=== PATIENT | male | born 1975 ===

== ENCOUNTER 2016-12-28 16:02 | Inpatient (IN) | payer OTHER ==
[2016-12-28 16:13] VITALS: O2SAT 99
--- NOTE | 2016-12-28 16:54 | ED PDOC ---
Psych Transfer Clearance - Clearance Statement Clearance Statement: Reviewed vital signs, lab results and transfer papers. Patient clinically stable for psychiatric admission.
[2016-12-28] MEDS ORDERED: Alum-Mag Hydrox-Simethicone Susp (30 mL) PO PRN (17:29)
[2016-12-28] MEDS ORDERED: Magnesium Hydroxide Susp 30 ml UD PO PRN (17:29)
[2016-12-28] MEDS ORDERED: DiphenhydrAMINE 50 mg/ml Inj IM PRN (17:29)
--- NOTE | 2016-12-28 18:50 | PCM.BM ---
<Gregory Hernandez - Last Filed: 12/28/16 18:48> Treatment Plan Problems - Problems identified on initial assessmt Problem 1 Date Initiated: 12/28/16 Time Initiated: 18:30 Assessment reference: NA Status: Active Hopelessness/Helplessness Date Initiated: 12/28/16 Time Initiated: 18:30 Assessment reference: NA Status: Active Treatment assets and liabiliti Patient Assests: cooperative, self-reliant, ADL independent, physically healthy , good interpersonal skills Patient Liabilities: relationship conflicts, substance abuse - Milieu Protocol Maintain good personal hygiene: daily Encourage regular showers, every shift Remind patient to perform daily oral care, every shift Assist patient to perform ADL's Conduct patient checks and document Observation sheet: Q15 minutes Maintain personal safety: daily Educate patient to report safety concerns to staff, every shift Monitor environment for contraband/sharps Medication safety: Monitor for expected outcome, potential side effects: every shift, Assess barriers to learning: every shift, Assess readiness for medication education: every shift Family Contact Family involvement: No known Family/SO - Goals for Treatment Patient goals for treatment: to feel better mentally <Stephan Sosa - Last Filed: 12/29/16 13:35> Family Contact Family involvement: Famliy/SO not involved Family contact name: Pt's family resides in [place] and is not very active in his life. - Goals for Treatment Patient goals for treatment: Pt is worried that his alcohol use is causing him to have medical issues and feels that he has to stop drinking. Discharge/Continuing Care - Education Needs Education Needs: Patient Medication, Patient Coping Skills, Patient Community resources, Patient Aftercare Safety Plan - Discharge Discharge Criteria: Tolerates medication w/o severe side effects, No longer exhibiting s/s of withdrawal, Reduction of target symptoms Discharge to:: Home - Treatment Team Participation Was Patient/Family/SO present at Treatment Team Meeting: Yes <Leana Harris - Last Filed: 12/30/16 16:04> Family Contact Family involvement: Patient does not wish Family/SO involvement Family contact: Patient declines to allow family contact at present Discharge/Continuing Care - Treatment Team Participation Patient/Family/SO Statement: 12/30/16 16:01 Patient attended treatment team this morning and was able to actively participate in discussions regarding precursors to hospitalization and progress on 3NP. Patient reported significant improvement in symptoms of depression since admission. Patient denies SI/HI, AH/VH. Patient expressed being motivated for treatment and sobriety but reported difficulties finding aftercare that provides services that do not interfere with patients employment. Patient agreeable to [facility] referral given that offers evening groups. A list of local AA meetings provided. Patient discharged this afternoon. Discussed with Family/SO: No
[2016-12-29 08:06] LABS: T4 7.29 ug/dl (5.5-11.0)
[2016-12-29 08:21] LABS: THYROID STIMULATING HORMONE 1.91 mIU/ML (0.46-4.68)
[2016-12-29] MEDS: Pantoprazole 40 mg EC Tab PO SCH (10:41)
--- NOTE | 2016-12-29 19:03 | PCM.PSYCH ---
Initial Psychiatric Evaluation - Initial Psychiatric Evaluation Chief Complaint (in patient's own words): [facility] use Patient's Reaction to Hospitalization: pt [facility] of etoh/depression. reports feeling depressed lonely missing family in [facility]. pt reports drinking daily of 4 40oz beers along with various hard liquors. 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 appetite irregular 2nd to etoh and decreased $. reports within past couple years longest period of being sober was approx.. 4 months during which reportedly felt depressed with decreased energy, crying and thinking about family. admits one previous inpt adm. [facility] for similar complaints of etoh and depression. reports lives with several friends who help when possible related to finances if pt cannot pay rent 2nd to variation in work. denies known allergies. denies known medical illnesses. denies having surgery. denies psychiatric treatment in [facility]. reports family hx. of substance use. 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 History of Present Illness and Precipitating Events: see above Current Medications: Active Medications Generic Name Dose Route Start Last Admin Trade Name Freq PRN Reason Stop Dose Admin Acetaminophen 650 mg 12/28/16 17:29 Tylenol 325mg Tab PO Q4 PRN Pain, Mild (1-3) Al Hydrox/Mg Hydrox/Simethicone 30 ml 12/28/16 17:29 Maalox Plus 30 Ml PO Q4 PRN Dyspepsia Chlordiazepoxide 25 mg 12/29/16 04:00 12/29/16 16:53 Librium PO 25 mg Q6 ELZBIETA Administration Diphenhydramine HCl 50 mg 12/28/16 17:29 Benadryl IM Q6 PRN Extrapyramidal S/S Unable PO Diphenhydramine HCl 50 mg 12/28/16 17:33 Benadryl PO Q6 PRN EPS/Dystonic reaction Diphenhydramine HCl 50 mg 12/28/16 17:34 12/28/16 21:26 Benadryl PO 50 mg HS PRN Administration Sleep Folic Acid 1 mg 12/29/16 09:00 12/29/16 10:41 Folic Acid PO 1 mg DAILY ELZBIETA Administration Haloperidol 5 mg 10/14/17 17:29 Haldol PO Q4 PRN Agitation Haloperidol Lactate 5 mg 12/28/16 17:29 Haldol IM Q4 PRN Agitation, Unable to Take PO Lorazepam 2 mg 12/28/16 17:29 Ativan IM Q4 PRN Anxiety/Agitation,Unable PO Lorazepam 2 mg 12/28/16 17:32 Ativan PO Q4 PRN Agitation Magnesium Hydroxide 30 ml 12/28/16 17:29 Milk Of Magnesia PO HS PRN Constipation Ondansetron HCl 4 mg 12/28/16 21:03 12/29/16 05:12 Zofran Tab PO 4 mg Q6 PRN Administration Nausea/Vomiting Pantoprazole Sodium 40 mg 12/29/16 09:00 12/29/16 10:41 Protonix Ec Tab PO 40 mg DAILY ELZBIETA Administration Thiamine HCl 100 mg 12/29/16 09:00 12/29/16 10:41 Vitamin B1 Tab PO 100 mg DAILY ELZBIETA Administration Past Psychiatric History - Past Psychiatric History [facility] Nature of Treatment: detox, er evaluation transfer to [facility] History of Abuse: denies History of ETOH/Drug Use: etoh use began reportedly when came to [place] with family in [facility]-while [facility] reported social drinking which increased when came to [place] History of Family Illness: family hx etoh Pertinent Medical Hx (Current Medical&Sleep Prob, Allergies): Allergies Allergy/AdvReac Type Severity Reaction Status Date / Time No Known Allergies Allergy Verified 12/28/16 09:29 Divalproex [Depakote DR] 500 mg PO HS #30 tcp 05/20/16 PARoxetine [Paxil] 10 mg PO DAILY #30 tab 05/20/16 Review of Systems - Psychiatric Psychiatric: Abnormal Sleep Pattern, Anhedonia, Change in Appetite, Depression Mental Status Examination - Personal Presentation Personal Presentation: Looks older than stated age - Affect Affect: Broad - Motor Activity Motor Activity: Calm, Psychomotor Retardation - Reliability in Providing Information Reliability in Providing Information: Fair - Speech Speech: Organized - Mood Mood: Depressed - Formal Thought Process Formal Thought Process: No Impairment - Obsessions/Compulsions Obsessions: No Compulsions: No - Cognitive Functions Orientation: Person, Place, Situation, Time Sensorium: Alert Attention/Concentration: Attentive Judgement: Imparied, as evidence by: Lack of insight into illness Memory: Recent intact, as evidence by: Ability to recall events of the day - Risk Risk: Withdrawal - Strength & Assets Inventory Strength & Assets Inventory: Cooperative Additional comments: has female friend with whom he reportedly communicates and seeks advicel - Limitations Additional comments: family living in [place] DSM 5 DX - DSM 5 DSM 5 Diagnosis: major depressive disorder moderate to severe without psychosis subtsance use: etoh active family circumstances Estonian speaking client - Recommended/Plan of Treatment Treatment Recommendations and Plan of Treatment: inpt admission per attending vital signs and clinical observation per protocol and per clinical status prns per unit protocol librium taper for etoh withdrawal given pt's reported complaints of depression and decreased sleep will start mirtazepine 15mg po hs-reviewed possible sedation, increased weight gain, possible suicidal ideations, get up slowly review pt that mirtazepine is on discounted rx list related to obtain rx upon discharge-pt does not have prescription plan hospitalist consult discharge planning in [facility]d, opd substance use, opd primary care Projected ELOS: 5-7 days Prognosis: guarded Discharge Plan and Discharge Criteria: safety - Smoking Cessation Smoking Cessation Initiated: No Reason for not providing: pt deferred
[2016-12-30] MEDS: Pantoprazole 40 mg EC Tab PO SCH (08:32)
[2016-12-30] MEDS ORDERED: Influenza Vaccine 18yr & older 0.5 ML/45 MCG SYR IM ONE (12:55)
--- NOTE | 2016-12-30 13:06 | PCM.PYCHDC ---
Mental Status Examination - Mental Status Examination Orientation: Person, Place, Situation, Time Memory: Intact Mood: Neutral Affect: Constricted Speech: Appropriate Attention: WNL Concentration: WNL Fund of Knowledge: WNL Formal Thought Process: No Impairment Description of patient's judgement and insight: good insight and fair judgment Psychotic Thoughts and Behaviors: patient denied any psychotic symptoms , non elicited Suicidal Ideation: No Current Homicidal Ideation?: No Discharge Summary - Discharge Note Reason for Hospitalization: pt transferred from [facility] 2nd to bed availability.pt presented to [facility] with complaints of etoh/depression. reports feeling depressed lonely missing family in [facility]. pt reports drinking daily of 4 40oz beers along with various hard liquors. 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 appetite irregular 2nd to etoh and decreased $. reports within past couple years longest period of being sober was approx.. 4 months during which reportedly felt depressed with decreased energy, crying and thinking about family. admits one previous inpt adm. [facility] for similar complaints of etoh and depression. reports lives with several friends who help when possible related to finances if pt cannot pay rent 2nd to variation in work. denies known allergies. denies known medical illnesses. denies having surgery. denies psychiatric treatment in [facility]. reports family hx. of substance use. 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 Psychiatric History (includes Medical, Family, Personal Hx): detox, er evaluation transfer to [facility] Laboratory Data: Abnormal Lab Results 12/29/16 12/29/16 07:10 07:10 Hemoglobin A1c 5.4 RPR Nonreactive Consultations:: List each consultation separately and include: 1. Reason for request. 2. Findings. 3. Follow-up Summary of Hospital Course include:: 1. Description of specific treatment plan utilized for patients during their course of treatmen. 2. Summarize the time- course for resolution of acute symptoms and/or regressed behaviors. 3. Describe issues identified and worked on during hospitalization. 4. Describe medication utilized. 5. Describe medical problems identified and treated. 6. Reassessment of suicide risk Summary of Hospital Course: patient on admission was started on alcohol withdrawal protocol patient was started on lexapro as antidepressant monitored for symptoms and signs of alcohol withdrawal motivational therapy was provided patient was referred to outpatient [facility] on discharge on discharge mental status was stable patient denued any suicidal or homicidal ideations denied perceptual disturbances - Diagnosis (1) Major depression, recurrent Current Visit: Yes Status: Acute - Final Diagnosis (DSM 5) Condition upon Discharge: GOOD Disposition: HOME/ ROUTINE Prescriptions/Medication Reconciliation: Escitalopram [Lexapro] 10 mg PO DAILY 30 Days #30 tab - Smoking Cessation Smoking Cessation Medication prescribed: Yes - Antipsychotic Medications Pt discharged on 2 or more routine antipsychotic medications: No
[2016-12-30 14:05] VITALS: BP 123/62; PULSE 67; RESP 16; TEMP 96.4
== END 2016-12-30 14:29 | disposition home or self-care (01) | DRG 430 ==
LOC: H.ER 16:02 → H.PSYCH 16:10
PROVIDERS: ADMIT Nurse Practitioner Psychiatric/Mental Health; ATTEND Nurse Practitioner Psychiatric/Mental Health
PROC: 3E0234Z Introduction of Serum, Toxoid and Vaccine into Muscle, Percutaneous Approach (ICD-10-PCS; principal; 2016-12-30)
DX: F33.1 Major depressive disorder, recurrent, moderate (principal); Z23 Encounter for immunization